=== PATIENT | male | born 1975 | race Caucasian/White ===

== ENCOUNTER 2020-07-30 17:36 | Outpatient (REF) | payer OTHER, SELFPAY | END 2020-07-30 17:37 | disposition home or self-care (01) | LOC: HO.LAB 17:36 | PROVIDERS: PCP Internal Medicine; Visit Provider Internal Medicine | DX: Z20.828 Contact with and (suspected) exposure to other viral communicable diseases (principal) | CPT/HCPCS: U0003 ==

== ENCOUNTER 2020-11-12 06:59 | Outpatient (REF) | payer OTHER, SELFPAY | END 2020-11-12 07:00 | disposition home or self-care (01) | LOC: HO.HMGCLDS 06:59 | PROVIDERS: PCP Internal Medicine; Visit Provider Internal Medicine | DX: Z20.822 Contact with and (suspected) exposure to COVID-19 (principal) | CPT/HCPCS: 36415; C9803; U0003; U0005 ==